=== PATIENT | female | born 2000 | race Caucasian/White ===

== ENCOUNTER 2021-09-24 18:18 | Emergency (ER) | payer SELFPAY ==
[~2021-09-24] VITALS: Ht 175 cm; Wt 88.0 kg
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
[2021-09-24 19:06] LABS: BILIRUBIN,URINE NEGATIVE (NEGATIVE); CLARITY,URINE SL CLOUDY; COLOR,URINE YELLOW; GLUCOSE, URINE (UA) NEGATIVE (NEGATIVE); KETONES,URINE NEGATIVE (NEGATIVE); LEUKOCYTE ESTERASE ,URINE 1+ (NEGATIVE); NITRITE,URINE NEGATIVE (NEGATIVE); PH,URINE 5.5 (5-9); PROTEIN,URINE NEGATIVE (NEGATIVE)
[2021-09-24 19:16] LABS: BACTERIA,URINE LARGE /HPF
[2021-09-24 19:25] LABS: AMPHETAMINE SCREEN, URINE NEGATIVE (NEGATIVE); BARBITURATE SCREEN URINE NEGATIVE (NEGATIVE); BENZODIAZEPINES SCREEN URINE NEGATIVE (NEGATIVE); CANNABINOID SCREEN, URINE POSITIVE (NEGATIVE); COCAINE SCREEN URINE NEGATIVE (NEGATIVE); HCG,QUALITATIVE URINE NEGATIVE (NEGATIVE); METHADONE STAT NEGATIVE (NEGATIVE); OPIATE SCREEN URINE NEGATIVE (NEGATIVE); OXYCODONE STAT NEGATIVE (NEGATIVE); PROPOXYPHENE STAT NEGATIVE (NEGATIVE); TRICYCLIC ANTIDEPRESSANTS SCRE NEGATIVE (NEGATIVE)
[2021-09-24] MEDS ORDERED: cefTRIAXone 1,000 MG VIAL IM SCH (19:45)
[2021-09-24] MEDS ORDERED: LIDOCAINE 1% INJ 20 ML VIAL INJ ONE (19:45)
[2021-09-24] MEDS ORDERED: AZITHROMYCIN 250 MG TAB (ZITHROMAX) PO ONE (19:45)
[2021-09-24] MEDS ORDERED: DOXY100T2 PO (19:47)
[2021-09-24 19:58] VITALS: BP 122/74
== END 2021-09-24 19:59 | disposition home or self-care (01) ==
LOC: ER 18:22
DX: N39.0 Urinary tract infection, site not specified (principal); N73.9 Female pelvic inflammatory disease, unspecified; N72 Inflammatory disease of cervix uteri; F17.290 Nicotine dependence, other tobacco product, uncomplicated
CPT/HCPCS: 36415; 80306; 81000; 84703; 87070; 87088; 87205; 87210; 87220; 87491; 87591; 99284

== ENCOUNTER 2021-10-03 13:36 | Emergency (ER) | payer SELFPAY ==
[~2021-10-03] VITALS: Ht 175.3 cm; Wt 93.0 kg
[~2021-10-03 13:36] MED LIST: DOXY100T2 PO
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
--- NOTE | 2021-10-03 14:41 | Diagnostic Imaging Report ---
PROCEDURE: CT head without contrast. TECHNIQUE: Multiple contiguous axial images were obtained through the brain without the use of intravenous contrast. Auto Exposure Controls were utilized during the CT exam to meet ALARA standards for radiation dose reduction. INDICATION: Right-sided numbness. No prior studies are available for comparison. The ventricles and sulci are within normal limits. No sulcal effacement or midline shift is identified. No acute intra-axial or extra-axial hemorrhage is detected. Cisterns are patent. Visualized paranasal sinuses are clear. IMPRESSION: No acute intracranial process is detected. Dictated by: Dictated on workstation # [id number]
[2021-10-03 14:46] LABS: BILIRUBIN,URINE NEGATIVE (NEGATIVE); CLARITY,URINE CLEAR; COLOR,URINE YELLOW; GLUCOSE, URINE (UA) NEGATIVE (NEGATIVE); KETONES,URINE NEGATIVE (NEGATIVE); LEUKOCYTE ESTERASE ,URINE 3+ (NEGATIVE); NITRITE,URINE NEGATIVE (NEGATIVE); PROTEIN,URINE NEGATIVE (NEGATIVE)
[2021-10-03 14:53] LABS: BACTERIA,URINE LARGE /HPF
[2021-10-03 15:00] LABS: BASOPHILS # (AUTO) 0.1 10^3/uL (0.0-0.1); BASOPHILS % (AUTO) 1 % (0-10); EOSINOPHILS % (AUTO) 0 % (0-10); HEMATOCRIT 43 % (35-52); HEMOGLOBIN 14.2 g/dL (11.5-16.0); LYMPHOCYTES # (AUTO) 2.9 10^3/uL (1.0-4.0); LYMPHOCYTES % (AUTO) 24 % (12-44); MEAN CORPUSCULAR HEMOGLOBIN 30 pg (25-34); MEAN CORPUSCULAR HGB CONC 33 g/dL (32-36); MEAN CORPUSCULAR VOLUME 91 fL (80-99); MONOCYTES # (AUTO) 0.7 10^3/uL (0.0-1.0); MONOCYTES % (AUTO) 6 % (0-12); NEUTROPHILS # (AUTO) 8.3 10^3/uL (1.8-7.8); NEUTROPHILS % (AUTO) 69 % (42-75); PLATELET COUNT 489 10^3/uL (130-400); WHITE BLOOD COUNT 12.1 10^3/uL (4.3-11.0)
[2021-10-03] MEDS ORDERED: NS 100 ML (IVPB) BAG IV ONE (15:00)
[2021-10-03] MEDS ORDERED: CATHETER FLUSH 10 ML SYR IV PRN (15:00)
[2021-10-03] MEDS ORDERED: HOLD METFORMIN - RECEIVED CONTRAST 20 ML VIAL IV SCH (15:00)
[2021-10-03] MEDS ORDERED: KETOROLAC 30 MG/ML VIAL IVP ONE (15:00)
[2021-10-03] MEDS ORDERED: IOHEXOL 350 MG/ML 100 ML (OMNIPAQUE 350) VIAL IV ONE (15:00)
[2021-10-03 15:02] LABS: AMPHETAMINE SCREEN, URINE NEGATIVE (NEGATIVE); BENZODIAZEPINES SCREEN URINE NEGATIVE (NEGATIVE); COCAINE SCREEN URINE NEGATIVE (NEGATIVE); HCG,QUALITATIVE URINE NEGATIVE (NEGATIVE)
[2021-10-03 15:03] LABS: BARBITURATE SCREEN URINE NEGATIVE (NEGATIVE); CANNABINOID SCREEN, URINE NEGATIVE (NEGATIVE); METHADONE STAT NEGATIVE (NEGATIVE); OPIATE SCREEN URINE NEGATIVE (NEGATIVE); OXYCODONE STAT NEGATIVE (NEGATIVE); PROPOXYPHENE STAT NEGATIVE (NEGATIVE); TRICYCLIC ANTIDEPRESSANTS SCRE NEGATIVE (NEGATIVE)
[2021-10-03 15:13] LABS: ALBUMIN 4.5 GM/DL (3.2-4.5); POTASSIUM 4.2 MMOL/L (3.6-5.0)
[2021-10-03 15:14] LABS: CALCIUM 9.7 MG/DL (8.5-10.1)
[2021-10-03 15:15] LABS: TOTAL PROTEIN 8.2 GM/DL (6.4-8.2)
[2021-10-03 15:17] LABS: BILIRUBIN,TOTAL 0.5 MG/DL (0.1-1.0)
[2021-10-03 15:19] LABS: CREATININE SERUM 0.86 MG/DL (0.60-1.30)
[2021-10-03 15:22] LABS: MAGNESIUM 2.2 MG/DL (1.6-2.4)
[2021-10-03 15:23] LABS: PROTHROMBIN TIME PATIENT 13.8 SEC (12.2-14.7)
--- NOTE | 2021-10-03 15:23 | Diagnostic Imaging Report ---
PROCEDURE: CT angiography of the head and CT angiography of the neck with and without contrast. TECHNIQUE: Contiguous noncontrast images were obtained from the skull base through the vertex. After intravenous contrast administration, helical CT angiography of the neck was performed. Source data was reformatted into 3D MIP projections. Delayed postcontrast acquisition was also obtained. Auto Exposure Controls were utilized during the CT exam to meet ALARA standards for radiation dose reduction. INDICATION: Right-sided face, arm, and leg numbness. Comparison is made with noncontrast head CT earlier same day. FINDINGS: Delayed postcontrast images through the brain are without evidence of an enhancing lesion. CT angiographic portion of the study demonstrates a three-vessel branching pattern to the aortic arch. The right and left common carotid arteries appear widely patent. The carotid bifurcations are unremarkable. The right and left internal carotid arteries are widely patent. Left vertebral artery is dominant. Both vertebral arteries appear to be patent. The basilar artery is patent. There is a hypoplastic right [employer] consistent with origin. Posterior cerebral arteries are patent. Right and left anterior cerebral arteries appear to be patent. The M1 and M2 segments of the right and left middle cerebral arteries appear to be patent. No thromboembolism or evidence of large vessel occlusion is detected. IMPRESSION: Unremarkable CT angiogram of the head and neck. Dictated by: Dictated on workstation # [id number]
[2021-10-03 15:54] VITALS: BP 105/58
== END 2021-10-03 15:54 | disposition home or self-care (01) ==
LOC: EDUNIT# 13:36 → ER 13:38
DX: R20.0 Anesthesia of skin (principal); R20.2 Paresthesia of skin; F17.210 Nicotine dependence, cigarettes, uncomplicated
CPT/HCPCS: 36415; 70450; 70496; 70498; 80053; 80306; 81000; 83735; 84703; 85025; 85610; 85730; 93005